=== PATIENT | female | born 1945 | race Caucasian/White ===

== ENCOUNTER 2016-08-25 16:14 | Emergency (ER) | payer OTHER ==
[~2016-08-25] VITALS: Ht 177.8 cm; Wt 97.5 kg
[2016-08-25 16:28] VITALS: BP 146/75; PULSE 73; RESP 16; TEMP 97.6; O2SAT 95
--- NOTE | 2016-08-25 16:34 | NUR ---
Patient triaged and placed in waiting room. VSS and patient appears in no acute distress at this time. Accompanied by , awaiting available bed, and MD notified of need for MSE.
[2016-08-25] MEDS ORDERED: KETOROLAC TROMETHAMINE 60 MG/2 ML VIAL IM ONE (18:15)
--- NOTE | 2016-08-25 19:30 | NUR ---
Pt received sitting in hallway with family/.
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
[2016-08-25 20:11] VITALS: BP 148/76; PULSE 75; RESP 17; TEMP 97.8; O2SAT 98
--- NOTE | 2016-08-25 20:11 | NUR ---
Patient given written and verbal discharge instructions and verbalizes understanding. 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 Patient in stable condition. ID arm band removed. Rx of tylenol extra strength 500 mg given. Patient educated on pain management and to follow up with PMD. Pain Scale 4/10. Opportunity for questions provided and answered.
== END 2016-08-25 20:11 | disposition home or self-care (01) ==
LOC: SED 16:14
DX: M54.5 Low back pain (principal); E11.9 Type 2 diabetes mellitus without complications; I10 Essential (primary) hypertension; V89.2XXA Person injured in unspecified motor-vehicle accident, traffic, initial encounter; Y93.89 Activity, other specified; Y99.8 Other external cause status; Y92.89 Other specified places as the place of occurrence of the external cause
CPT/HCPCS: 72072-TC; 72100-TC; 99284